=== PATIENT | female | born 1945 | race Native Hawaiian/Other Pacific Islander ===

== ENCOUNTER 2019-01-26 13:58 | Outpatient (CLI) | payer OTHER ==
[2019-01-26] MEDS ORDERED: HYDR25TA60 PO (18:17)
[2019-01-26] MEDS ORDERED: VALSARTAN320 MG PO (18:17)
[2019-01-26] MEDS ORDERED: CALCIUM CARBON600 M2 PO (18:18)
[2019-01-26] MEDS ORDERED: AMIT10TA21 PO (18:19)
[2019-01-26] MEDS ORDERED: K-TAB20 MEQ PO (18:19)
[2019-01-26] MEDS ORDERED: SITA50TA2 PO (18:20)
[2019-01-26] MEDS ORDERED: ATEN50TA36 PO (18:20)
[2019-01-26] MEDS ORDERED: FURO40TA93 PO (18:21)
[2019-01-26] MEDS ORDERED: GLIP10TA55 PO (18:21)
[2019-01-26] MEDS ORDERED: CLARITIN10 M1 PO (18:22)
[2019-01-26] MEDS ORDERED: LEVO0.0723 PO (18:22)
[2019-01-26] MEDS ORDERED: MOBIC15 MG PO (18:23)
[2019-01-26] MEDS ORDERED: OMEPRAZOLE20 M1 PO (18:23)
== END 2019-01-26 14:18 | disposition short-term general hospital (02) ==
LOC: AMB 13:58
DX: R53.1 Weakness (principal); E10.9 Type 1 diabetes mellitus without complications; W18.39XA Other fall on same level, initial encounter; Y92.018 Other place in single-family (private) house as the place of occurrence of the external cause
CPT/HCPCS: A0425; A0427

== ENCOUNTER 2019-01-26 14:25 | Inpatient (IN) | payer OTHER ==
[2019-01-26] VITALS (10 sets, daily range): BP systolic 96–193; BP diastolic 39–102; TEMP 97.8–99; Ht 162.6 cm; Wt 76.3 kg
[~2019-01-26] VITALS: Ht 162.6 cm; Wt 76.3 kg
[2019-01-26 14:49] LABS: PLATELET COUNT 145 K/uL (152-353)
[2019-01-26 15:01] LABS: POTASSIUM 4.2 mmol/L (3.6-5.2); SODIUM 135 mmol/L (136-145)
[2019-01-26 15:12] LABS: PARTIAL THROMBOPLASTIN TIME 25.2 SECONDS (24.5-33.6)
[2019-01-26] MEDS ORDERED: VALSARTAN320 MG PO (18:17)
[2019-01-26] MEDS ORDERED: HYDR25TA60 PO (18:17)
[2019-01-26] MEDS ORDERED: CALCIUM CARBON600 M2 PO (18:18)
[2019-01-26] MEDS ORDERED: AMIT10TA21 PO (18:19)
[2019-01-26] MEDS ORDERED: K-TAB20 MEQ PO (18:19)
[2019-01-26] MEDS ORDERED: ATEN50TA36 PO (18:20)
[2019-01-26] MEDS ORDERED: SITA50TA2 PO (18:20)
[2019-01-26] MEDS ORDERED: GLIP10TA55 PO (18:21)
[2019-01-26] MEDS ORDERED: FURO40TA93 PO (18:21)
[2019-01-26] MEDS ORDERED: LEVO0.0723 PO (18:22)
[2019-01-26] MEDS ORDERED: CLARITIN10 M1 PO (18:22)
[2019-01-26] MEDS ORDERED: OMEPRAZOLE20 M1 PO (18:23)
[2019-01-26] MEDS ORDERED: MOBIC15 MG PO (18:23)
[2019-01-27 00:24] VITALS: BP 113/59; TEMP 98.1
[2019-01-27 04:02] VITALS: BP 81/43; TEMP 97.5
[2019-01-27 04:51] LABS: PLATELET COUNT 117 K/uL (152-353)
[2019-01-27 05:06] LABS: POTASSIUM 3.7 mmol/L (3.6-5.2)
[2019-01-27 08:00] VITALS: BP 123/58; TEMP 97.8
[2019-01-27 12:00] VITALS: BP 96/65; TEMP 97.9
[2019-01-27 14:05] LABS: PLATELET COUNT 100 K/uL (152-353)
[2019-01-27 14:28] LABS: POTASSIUM 4.5 mmol/L (3.6-5.2)
[2019-01-27 16:00] VITALS: BP 108/58; TEMP 98
[2019-01-27 20:00] VITALS: BP 121/61; TEMP 98.1
[2019-01-28] VITALS: BP 102/52; TEMP 98.7
[2019-01-28 03:56] VITALS: BP 89/44; TEMP 98.6
[2019-01-28 04:28] LABS: PLATELET COUNT 111 K/uL (152-353)
[2019-01-28 05:28] LABS: POTASSIUM 3.7 mmol/L (3.6-5.2)
[2019-01-28 08:00] VITALS: BP 94/50; TEMP 98.2
[2019-01-28 12:00] VITALS: BP 82/79; TEMP 97.9
[2019-01-28 16:00] VITALS: BP 110/61; TEMP 98
[2019-01-28 20:00] VITALS: BP 116/59; TEMP 98.4
[2019-01-29] VITALS (7 sets, daily range): BP systolic 93–130; BP diastolic 54–69; TEMP 97.6–98.3
[2019-01-29 04:30] LABS: PLATELET COUNT 110 K/uL (152-353)
[2019-01-29 04:38] LABS: POTASSIUM 3.9 mmol/L (3.6-5.2)
[2019-01-30 04:00] VITALS: BP 138/60; TEMP 98.5
[2019-01-30 08:00] VITALS: BP 126/66; TEMP 97.8
[2019-01-30 12:00] VITALS: BP 118/72; TEMP 98.7
== END 2019-01-30 14:17 | disposition swing bed (61) | DRG 683 ==
LOC: ED 14:25 → MED/SURG 16:00
PROVIDERS: Student in an Organized Health Care Education/Training Program; ADMIT Internal Medicine
DX: N17.8 Other acute kidney failure (principal); E87.2 Acidosis; R41.82 Altered mental status, unspecified; E86.0 Dehydration; R60.0 Localized edema; E11.9 Type 2 diabetes mellitus without complications; I10 Essential (primary) hypertension; E03.8 Other specified hypothyroidism; K21.9 Gastro-esophageal reflux disease without esophagitis; R53.1 Weakness; R62.7 Adult failure to thrive; R26.89 Other abnormalities of gait and mobility
CPT/HCPCS: 36415; 80048; 80053; 81000; 82948; 83735; 84439; 84443; 84484; 85027; 85610; 85730; 93005; 96360; 96365; 96366; 96372; 96375; 99284; J1650; J1815; J3475

== ENCOUNTER 2019-01-30 14:17 | Inpatient (IN) | payer OTHER ==
[~2019-01-30] VITALS: Ht 162.6 cm; Wt 83.7 kg
[~2019-01-30 14:17] MED LIST: AMIT10TA21 PO; ATEN50TA36 PO; CALCIUM CARBON600 M2 PO; CLARITIN10 M1 PO; FURO40TA93 PO; GLIP10TA55 PO; HYDR25TA60 PO; K-TAB20 MEQ PO; LEVO0.0723 PO; MOBIC15 MG PO; OMEPRAZOLE20 M1 PO; SITA50TA2 PO; VALSARTAN320 MG PO
[2019-01-30 16:00] VITALS: BP 159/75; TEMP 97.4; Ht 162.6 cm; Wt 83.7 kg
[2019-01-31 08:00] VITALS: BP 110/63; TEMP 97.9
[2019-01-31 20:00] VITALS: BP 131/74; TEMP 97.3
[2019-02-01 08:00] VITALS: BP 125/69; TEMP 97.6
[2019-02-01 20:00] VITALS: BP 123/69; TEMP 97.9
[2019-02-02 08:00] VITALS: BP 111/59; TEMP 97.8
[2019-02-02 19:52] VITALS: BP 142/76; TEMP 97.8
[2019-02-03 08:00] VITALS: BP 109/55; TEMP 98
[2019-02-03 20:00] VITALS: BP 141/73; TEMP 98.8
[2019-02-04 08:00] VITALS: BP 109/58; TEMP 98.1
[2019-02-04 20:27] VITALS: BP 124/70; TEMP 98.2
[2019-02-05 08:00] VITALS: BP 115/57; TEMP 97.7
[2019-02-05 20:00] VITALS: BP 119/73; TEMP 98.3
[2019-02-06 08:00] VITALS: BP 118/56; TEMP 98.1
[2019-02-06 20:00] VITALS: BP 132/74; TEMP 98.3
[2019-02-07 08:00] VITALS: BP 118/63; TEMP 97.9
[2019-02-07 20:00] VITALS: BP 114/65; TEMP 98.1
[2019-02-08 08:00] VITALS: BP 100/55; TEMP 97.8
[2019-02-08 20:00] VITALS: BP 128/58; TEMP 97.9
[2019-02-09 08:00] VITALS: BP 114/67; TEMP 97.7
[2019-02-09 20:00] VITALS: BP 124/59; TEMP 98
[2019-02-10 08:00] VITALS: BP 131/75; TEMP 98.1
[2019-02-10 20:00] VITALS: BP 144/79; TEMP 98.3
[2019-02-11 08:01] VITALS: BP 120/64; TEMP 98.1
[2019-02-11 20:03] VITALS: BP 133/68; TEMP 98.1
[2019-02-12 07:20] VITALS: BP 113/63; TEMP 98.3
[2019-02-12 20:00] VITALS: BP 126/61; TEMP 98.1
[2019-02-13 08:00] VITALS: BP 102/61; TEMP 98.2
[2019-02-13] MEDS ORDERED: BLOOMIS59 PO ×3 (13:31→13:50)
== END 2019-02-13 14:44 | disposition home health service (06) | DRG 556 ==
LOC: MED/SURG 14:17
PROVIDERS: ADMIT Internal Medicine
DX: M62.81 Muscle weakness (generalized) (principal); N17.8 Other acute kidney failure; R26.89 Other abnormalities of gait and mobility; E11.9 Type 2 diabetes mellitus without complications; I10 Essential (primary) hypertension; E03.8 Other specified hypothyroidism; R62.7 Adult failure to thrive; K21.9 Gastro-esophageal reflux disease without esophagitis
CPT/HCPCS: J1815; J1885

== ENCOUNTER 2019-02-21 11:40 | Emergency (ER) | payer OTHER ==
[~2019-02-21] VITALS: Ht 152.4 cm; Wt 81.6 kg
[~2019-02-21 11:40] MED LIST changes: +BLOOMIS59 PO
[2019-02-21 11:45] VITALS: TEMP 98.1
[2019-02-21 12:31] LABS: PLATELET COUNT 164 K/uL (152-353)
[2019-02-21 12:38] LABS: POTASSIUM 4.7 mmol/L (3.6-5.2); SODIUM 132 mmol/L (136-145)
[2019-02-21 16:30] VITALS: BP 127/76
== END 2019-02-21 16:45 | disposition home or self-care (01) ==
LOC: ED 11:40
PROVIDERS: Family Medicine
DX: R00.0 Tachycardia, unspecified (principal); E03.8 Other specified hypothyroidism; R60.0 Localized edema
CPT/HCPCS: 36415; 80053; 81000; 82550; 83880; 84439; 84443; 84484; 85027; 87086; 87088; 93005; 96360; 96374; 96375; 99284; J1940; J3490

== ENCOUNTER 2019-03-19 | Emergency (ER) | payer OTHER ==
[~2019-03-19] VITALS: Ht 152.4 cm; Wt 75.8 kg
[2019-03-19 00:53] LABS: PLATELET COUNT 200 K/uL (152-353)
[2019-03-19 02:00] LABS: PARTIAL THROMBOPLASTIN TIME 28.5 SECONDS (24.5-33.6)
[2019-03-19 02:46] VITALS: BP 126/66; TEMP 97.8
== END 2019-03-19 02:46 | disposition short-term general hospital (02) ==
LOC: ED
PROVIDERS: Emergency Medicine
DX: N93.8 Other specified abnormal uterine and vaginal bleeding (principal); T45.525A Adverse effect of antithrombotic drugs, initial encounter; Y92.89 Other specified places as the place of occurrence of the external cause
CPT/HCPCS: 80053; 85027; 85610; 85730; 86850; 86900; 86901; 99285

== ENCOUNTER 2019-03-19 03:03 | Outpatient (CLI) | payer OTHER | END 2019-03-19 04:00 | disposition short-term general hospital (02) | LOC: AMB 03:03 | DX: N93.8 Other specified abnormal uterine and vaginal bleeding (principal); T50.995A Adverse effect of other drugs, medicaments and biological substances, initial encounter | CPT/HCPCS: A0425; A0429 ==

== ENCOUNTER 2019-04-19 15:38 | Inpatient (IN) | payer OTHER ==
[~2019-04-19] VITALS: Ht 162.6 cm; Wt 76.7 kg
[2019-04-19 15:50] VITALS: BP 134/76; TEMP 97.2
[2019-04-19 16:31] LABS: PLATELET COUNT 301 K/uL (152-353)
[2019-04-19 16:41] LABS: POTASSIUM 4.9 mmol/L (3.6-5.2)
[2019-04-19 22:12] VITALS: BP 101/62; TEMP 97.9; Ht 162.6 cm; Wt 76.7 kg
[2019-04-19] MEDS ORDERED: ELIQUIS5 MG PO (23:17)
[2019-04-19] MEDS ORDERED: FURO40TA93 PO (23:17)
[2019-04-19] MEDS ORDERED: GLIP10TA55 PO (23:18)
[2019-04-19] MEDS ORDERED: LACTSYP31 PO (23:19)
[2019-04-19] MEDS ORDERED: UNITH DIRECT100 MCG PO (23:21)
[2019-04-19] MEDS ORDERED: METO-837 PO (23:22)
[2019-04-19] MEDS ORDERED: K-TAB20 MEQ PO (23:23)
[2019-04-19] MEDS ORDERED: SITA50TA2 PO (23:24)
[2019-04-19] MEDS ORDERED: FERROUS SULF325 MG PO (23:25)
[2019-04-19] MEDS ORDERED: SPIRONOLACT25 MG PO (23:32)
[2019-04-20] VITALS: BP 102/58; TEMP 98.1
[2019-04-20 04:00] VITALS: BP 100/56; TEMP 98.3
[2019-04-20 08:00] VITALS: BP 109/58; TEMP 97.4
[2019-04-20 12:00] VITALS: BP 104/61; TEMP 98.1
[2019-04-20 16:00] VITALS: BP 92/57; TEMP 97.9
[2019-04-20 20:00] VITALS: BP 104/58; TEMP 98.2
[2019-04-21] VITALS: BP 105/63; TEMP 97.8
[2019-04-21 04:00] VITALS: BP 102/51; TEMP 98.9
[2019-04-21 04:26] LABS: PLATELET COUNT 162 K/uL (152-353)
[2019-04-21 04:41] LABS: POTASSIUM 4.6 mmol/L (3.6-5.2)
[2019-04-21 08:00] VITALS: BP 100/61; TEMP 97.8
[2019-04-21 12:00] VITALS: BP 114/68; TEMP 98.5
[2019-04-21 20:00] VITALS: BP 101/72; TEMP 98.3
[2019-04-21 23:53] VITALS: BP 121/62; TEMP 98.3
[2019-04-22 04:00] VITALS: BP 118/69; TEMP 98.8
[2019-04-22 08:00] VITALS: BP 103/66; TEMP 98
[2019-04-22 09:20] LABS: PLATELET COUNT 121 K/uL (152-353)
[2019-04-22 09:54] LABS: POTASSIUM 4.2 mmol/L (3.6-5.2)
[2019-04-22 12:00] VITALS: BP 103/64; TEMP 98.2
[2019-04-22 16:00] VITALS: BP 105/67; TEMP 98.2
[2019-04-22 19:52] VITALS: BP 121/67; TEMP 98.1
[2019-04-22 23:51] VITALS: BP 112/62; TEMP 98.4
[2019-04-23 04:00] VITALS: BP 110/60; TEMP 98.2
[2019-04-23 08:00] VITALS: BP 114/68; TEMP 98.6
[2019-04-23 11:26] LABS: POTASSIUM 3.7 mmol/L (3.6-5.2)
[2019-04-23 12:00] VITALS: BP 106/72; TEMP 98
[2019-04-23 16:00] VITALS: BP 108/64; TEMP 98.6
[2019-04-23 20:00] VITALS: BP 127/78; TEMP 98.3
[2019-04-24] VITALS: BP 117/80; TEMP 98.6
[2019-04-24 04:00] VITALS: BP 113/72; TEMP 98.2
[2019-04-24 05:04] LABS: PLATELET COUNT 101 K/uL (152-353)
[2019-04-24 05:20] LABS: POTASSIUM 3.7 mmol/L (3.6-5.2)
[2019-04-24 08:00] VITALS: BP 126/79; TEMP 98.4
[2019-04-24 12:00] VITALS: BP 129/79; TEMP 98.1
== END 2019-04-24 16:55 | disposition home or self-care (01) | DRG 812 ==
LOC: ED 15:38 → MED/SURG 18:30
PROVIDERS: Emergency Medicine; ADMIT Internal Medicine
PROC: 30233N1 Transfusion of Nonautologous Red Blood Cells into Peripheral Vein, Percutaneous Approach (ICD-10-PCS; principal; 2019-04-20)
PROC: 30233N1 Transfusion of Nonautologous Red Blood Cells into Peripheral Vein, Percutaneous Approach (ICD-10-PCS; 2019-04-22)
PROC: 30233N1 Transfusion of Nonautologous Red Blood Cells into Peripheral Vein, Percutaneous Approach (ICD-10-PCS; 2019-04-23)
DX: D62 Acute posthemorrhagic anemia (principal); N17.8 Other acute kidney failure; E46 Unspecified protein-calorie malnutrition; E87.1 Hypo-osmolality and hyponatremia; N39.0 Urinary tract infection, site not specified; N18.4 Chronic kidney disease, stage 4 (severe); N93.8 Other specified abnormal uterine and vaginal bleeding; E03.8 Other specified hypothyroidism; K72.90 Hepatic failure, unspecified without coma; E83.118 Other hemochromatosis; K74.69 Other cirrhosis of liver; B96.1 Klebsiella pneumoniae [K. pneumoniae] as the cause of diseases classified elsewhere; R00.0 Tachycardia, unspecified; I12.9 Hypertensive chronic kidney disease with stage 1 through stage 4 chronic kidney disease, or unspecified chronic kidney disease; E11.22 Type 2 diabetes mellitus with diabetic chronic kidney disease
CPT/HCPCS: 36415; 80048; 80053; 80076; 81000; 82550; 82553; 82570; 82728; 83540; 83735; 84134; 84300; 84443; 84484; 85014; 85018; 85027; 86850; 86900; 86901; 86922; 87077; 87086; 87088; 87186; 93005; 99283; J0744; J1815; J1940; J3490; P9016; P9047

== ENCOUNTER 2019-05-24 17:15 | Outpatient (CLI) | payer OTHER ==
[~2019-05-24 17:15] MED LIST changes: +ELIQUIS5 MG PO; +FERROUS SULF325 MG PO; +LACTSYP31 PO; +METO-837 PO; +SPIRONOLACT25 MG PO; +UNITH DIRECT100 MCG PO
[2019-05-24] MEDS ORDERED: AMITRIPTYLINE H10 MG PO (17:55)
[2019-05-24] MEDS ORDERED: OMEPRAZOLE20 M1 PO (17:55)
== END 2019-05-24 17:36 | disposition short-term general hospital (02) ==
LOC: AMB 17:15
DX: R06.09 Other forms of dyspnea (principal); R50.9 Fever, unspecified
CPT/HCPCS: A0425; A0427

== ENCOUNTER 2019-05-24 17:38 | Inpatient (IN) | payer OTHER ==
[~2019-05-24] VITALS: Ht 162.6 cm; Wt 76.7 kg
[2019-05-24 17:38] VITALS: BP 128/70; TEMP 102.6
[2019-05-24] MEDS ORDERED: OMEPRAZOLE20 M1 PO (17:55)
[2019-05-24] MEDS ORDERED: AMITRIPTYLINE H10 MG PO (17:55)
[2019-05-24 18:06] LABS: PLATELET COUNT 202 K/uL (152-353)
[2019-05-24 18:08] LABS: POTASSIUM 5.3 mmol/L (3.6-5.2); SODIUM 122 mmol/L (136-145)
[2019-05-24 20:00] VITALS: TEMP 98.7
[2019-05-24 21:30] VITALS: BP 83/35; TEMP 98
[2019-05-24 21:45] VITALS: BP 86/35; TEMP 98; Ht 162.6 cm; Wt 76.7 kg
[2019-05-24 22:00] VITALS: BP 77/48; TEMP 98
[2019-05-24 23:00] VITALS: BP 70/40
[2019-05-25] VITALS (23 sets, daily range): BP systolic 41–1322; BP diastolic 10–96; TEMP 97–98
[2019-05-25 02:35] LABS: PLATELET COUNT 192 K/uL (152-353)
[2019-05-25 02:39] LABS: POTASSIUM 5.9 mmol/L (3.6-5.2)
[2019-05-26] VITALS (7 sets, daily range): BP systolic 45–77; BP diastolic 19–90; TEMP 97
== END 2019-05-26 11:40 | disposition expired | DRG 871 ==
LOC: ED 17:39 → ICU 19:58
PROVIDERS: Emergency Medicine; ADMIT Internal Medicine
DX: A41.1 Sepsis due to other specified staphylococcus (principal); R65.21 Severe sepsis with septic shock; N17.8 Other acute kidney failure; R18.8 Other ascites; E87.2 Acidosis; N18.4 Chronic kidney disease, stage 4 (severe); A41.51 Sepsis due to Escherichia coli [E. coli]; K72.90 Hepatic failure, unspecified without coma; Z79.4 Long term (current) use of insulin; E03.8 Other specified hypothyroidism; M79.89 Other specified soft tissue disorders; K74.69 Other cirrhosis of liver; E80.6 Other disorders of bilirubin metabolism; I95.89 Other hypotension; I12.9 Hypertensive chronic kidney disease with stage 1 through stage 4 chronic kidney disease, or unspecified chronic kidney disease; E11.22 Type 2 diabetes mellitus with diabetic chronic kidney disease; E83.118 Other hemochromatosis
CPT/HCPCS: 36415; 51702; 80053; 81000; 82140; 82550; 82947; 83605; 83880; 84443; 84484; 85007; 85027; 87040; 87077; 87185; 87186; 87205; 93005; 94640; 94664; 94760; 96360; 96365; 96375; 99220; 99285; G0378; J0696; J1720; J1885; J2270; J2405; J2543; J3370; J3490; J7060; P9047